=== PATIENT | female | born 1975 ===

== ENCOUNTER 2020-09-03 13:28 | Outpatient (CLI) | payer OTHER | END 2020-09-03 14:35 | disposition home or self-care (01) | LOC: OFIC 805 13:28 | PROVIDERS: ATTEND Otolaryngology Otology & Neurotology | DX: G44.89 Other headache syndrome (principal); R09.81 Nasal congestion; J34.89 Other specified disorders of nose and nasal sinuses; H93.8X1 Other specified disorders of right ear ==